=== PATIENT | female | born 1950 | race Hispanic/Latino ===

== ENCOUNTER → 2018-10-05 | Outpatient (CLI) | payer MEDICARE ==
[~2018-10-05] MED LIST: ASPI-1181 PO; DIPH25TA51 PO; IOHEXOL 350 MG/ML 100ML INFUS..BTL IV ONE; PRAV40TA3 PO; RENAVITE; SEVELAMER CARBONATE PO
== END | disposition home or self-care (01) ==
LOC: RAH 07:09
PROVIDERS: ATTEND Internal Medicine Cardiovascular Disease
DX: K80.20 Calculus of gallbladder without cholecystitis without obstruction (principal); K43.9 Ventral hernia without obstruction or gangrene; N26.1 Atrophy of kidney (terminal)
CPT/HCPCS: 71275; 74174; Q9967